=== PATIENT | male | born 1955 | race Caucasian/White ===

== ENCOUNTER 2019-11-18 07:26 | Outpatient (CLI) | payer OTHER, SELFPAY ==
[2019-11-19 18:26] LABS: COVID-19 RT-PCR Result NEGATIVE (Negative)
== END 2019-11-18 07:46 ==
PROVIDERS: Visit Provider Family Medicine
DX: Z11.59 Encounter for screening for other viral diseases (principal)
CPT/HCPCS: U0003

== ENCOUNTER 2021-02-01 09:58 | Outpatient (CLI) | payer OTHER, SELFPAY ==
[2021-02-02 11:06] LABS: COVID-19 RT-PCR UVMMC Result Negative (Negative)
== END 2021-02-01 09:59 | disposition home or self-care (01) ==
PROVIDERS: Visit Provider Nurse Practitioner Acute Care
DX: Z20.822 Contact with and (suspected) exposure to COVID-19 (principal)
CPT/HCPCS: U0003

== ENCOUNTER 2021-02-19 08:49 | Outpatient (REF) | payer SELFPAY ==
[2021-02-19 10:34] LABS: Source Nasal/Nares
[2021-02-19 16:22] LABS: COVID-19 PCR Negative (Negative)
== END 2021-02-19 08:50 | disposition home or self-care (01) ==
LOC: LBO 08:49
PROVIDERS: Visit Provider Family Medicine
DX: Z20.822 Contact with and (suspected) exposure to COVID-19 (principal)
CPT/HCPCS: 87635

== ENCOUNTER 2022-03-14 16:39 | Outpatient (CLI) | payer OTHER, SELFPAY ==
[2022-03-14 16:17] LABS: HCT 44.4 % (40.0-50.0); HGB 14.9 g/dL (13.5-17.5)
[2022-03-17 15:29] LABS: PSA, Screening 5.4 ng/mL (<=4.5)
== END 2022-03-14 16:40 | disposition home or self-care (01) ==
LOC: LBO 16:40
PROVIDERS: Visit Provider Nurse Practitioner Family
DX: D64.9 Anemia, unspecified (principal); Z12.5 Encounter for screening for malignant neoplasm of prostate
CPT/HCPCS: 36415; 84153; 85014; 85018